=== PATIENT | male | born 1985 | race African-American/Black ===

== ENCOUNTER 2022-11-17 12:24 | Emergency (ER) | payer SELFPAY ==
[~2022-11-17] VITALS: Ht 193 cm; Wt 88.5 kg
[2022-11-17 12:41] VITALS: BP 108/64; TEMP 98.2
--- NOTE | 2022-11-17 14:02 | NUR ---
Patient discharged to home in stable condition. Written and verbal after care instructions given. Patient verbalizes understanding of instruction.
== END 2022-11-17 14:06 | disposition home or self-care (01) ==
LOC: ER 12:34
DX: M79.641 Pain in right hand (principal); M79.644 Pain in right finger(s); Z79.899 Other long term (current) drug therapy; W01.0XXA Fall on same level from slipping, tripping and stumbling without subsequent striking against object, initial encounter; Y93.89 Activity, other specified; Y92.89 Other specified places as the place of occurrence of the external cause; Y99.8 Other external cause status
CPT/HCPCS: 73110; 73130-TC

== ENCOUNTER 2022-11-23 15:17 | Emergency (ER) | payer MEDICAID ==
[~2022-11-23] VITALS: Ht 193 cm; Wt 86.2 kg
[2022-11-23] MEDS ORDERED: KETO10TA2 PO (17:25)
[2022-11-23 17:40] VITALS: BP 139/91
== END 2022-11-23 17:41 | disposition home or self-care (01) ==
LOC: ER 15:45
DX: M79.641 Pain in right hand (principal); M25.531 Pain in right wrist; J45.909 Unspecified asthma, uncomplicated; Z60.2 Problems related to living alone
CPT/HCPCS: 73110; 73130-TC

== ENCOUNTER 2023-12-26 09:22 | Emergency (ER) | payer MEDICAID, OTHER ==
[~2023-12-26] VITALS: Ht 193 cm; Wt 95.3 kg
[~2023-12-26 09:22] MED LIST: KETO10TA2 PO
[2023-12-26 11:13] VITALS: BP 118/77; TEMP 97.6; O2SAT 94
== END 2023-12-26 11:13 | disposition home or self-care (01) ==
LOC: ER 09:39
DX: M76.891 Other specified enthesopathies of right lower limb, excluding foot (principal); M25.551 Pain in right hip; J45.909 Unspecified asthma, uncomplicated; Z60.2 Problems related to living alone
CPT/HCPCS: 73502